=== PATIENT | male | born 1975 | race Asian ===

== ENCOUNTER 2022-06-16 04:56 | Day surgery (SDC) | payer OTHER ==
[2022-06-15 11:20] VITALS: BMI 27.8
[2022-06-16] MEDS ORDERED: SIMETHICONE 40 MG/0.6 ML BOTTLE ONE (08:49)
[2022-06-16 08:50] VITALS: TEMP 97.8
[2022-06-16 09:12] VITALS: RESP 18
[2022-06-16 09:31] VITALS: BP 99/65; PULSE 82
== END 2022-06-16 09:30 | disposition home or self-care (01) ==
LOC: JASU-ENDO 04:56
PROVIDERS: ATTEND Student in an Organized Health Care Education/Training Program
PROC: 0DBN8ZX Excision of Sigmoid Colon, Via Natural or Artificial Opening Endoscopic, Diagnostic (ICD-10-PCS; principal; 2022-06-16 08:00)
DX: D12.5 Benign neoplasm of sigmoid colon (principal); R19.7 Diarrhea, unspecified
CPT/HCPCS: 82962; 88305-TC

== ENCOUNTER 2024-03-20 10:27 | Emergency (ER) | payer OTHER ==
[2024-03-20 10:42] VITALS: BP 123/90; PULSE 96; RESP 18; TEMP 98.4; BMI 30.5
[2024-03-20] MEDS ORDERED: LIDOCAINE 5% TOPICAL PATCH ONE (11:34)
[2024-03-20] MEDS ORDERED: KETOROLAC TROMETHAMINE 30 MG/1 ML VIAL ONE (11:34)
[2024-03-20] MEDS: KETOROLAC TROMETHAMINE 15 MG/ML VIAL IM ONE (11:39)
[2024-03-20] MEDS: LIDOCAINE 5% TOPICAL PATCH TP ONE (11:39)
[2024-03-20] MEDS ORDERED: LIDOCAINE PATCH REMOVAL MC ONE (22:00)
== END 2024-03-20 12:40 | disposition home or self-care (01) ==
LOC: FER 10:27
PROC: 3E0133Z Introduction of Anti-inflammatory into Subcutaneous Tissue, Percutaneous Approach (ICD-10-PCS; principal; 2024-03-20)
DX: M67.911 Unspecified disorder of synovium and tendon, right shoulder (principal)
CPT/HCPCS: 99284-25